=== PATIENT | female | born 1935 | race Caucasian/White ===

== ENCOUNTER → 2022-07-31 | Outpatient (CLI) | payer MEDICARE, SELFPAY ==
--- NOTE | 2022-07-31 08:55 | ART_ITS ---
Reason For Study: Atherosclerosis Procedure A bilateral lower extremity continuous wave Doppler with analog waveform analysis and ankle brachial indexes. Left Segmental Pressures Left brachial= 152mmHg. Left posterior tibial artery = 168mmHg. Left dorsalis pedis artery = 185mmHg. The left dorsalis pedis waveforms are triphasic. The left posterior tibial artery waveforms are triphasic. Right Segmental Pressures Right brachial= 164mmHg. Right posterior tibial artery = 174mmHg. Right dorsalis pedis artery = 186mmHg. The right dorsalis pedis waveforms are triphasic. The right posterior tibial artery waveforms are triphasic. Indices The right ankle brachial index by the dorsalis pedis is 1.13. The right ankle brachial index by the posterior tibial artery is 1.06. The left ankle brachial index by the dorsalis pedis is 1.13. The left ankle brachial index by the posterior tibial artery is 1.02. VL/Ankle Brachial Index Interpretation Summary Bialteral no significant occlussive disease with triphasic flow and CIERA 1.13 an d 1.13. Ordering Physician: SARAH MEHTA Referring Physician: Ramy Dumont Performed By: Lauren Gan RVT
--- NOTE | 2022-07-31 08:55 | ADU_ITS ---
Reason For Study: Atherosclerosis Right Velocities Left Velocities Ext. Iliac Artery, dist = 111.4 cm./sec. Ext Iliac Artery, dist = 103.9 cm./sec. Common Femoral Artery, mid = 201.1 cm./sec. Common Femoral Artery, mid = 117.3 cm./sec. Supf Femoral Artery, prox = 116.9 cm./sec. Supf. Femoral Artery, prox = 109.5 cm./sec. Supf Femoral Artery, mid = 73 cm./sec. Supf. Femoral Artery, mid = 73.2 cm./sec. Supf Femoral Artery, dist. = 61.7 cm./sec. Supf. Femoral Artery, dist = 55.6 cm./sec. Profunda Femoral Artery = 43.7 cm./sec. Profunda Femoral Artery = 125.1 cm./sec. Popliteal Artery, mid = 58 cm./sec. Popliteal Artery, mid = 50.7 cm./sec. Post. Tibial Artery, prox = 53.1 cm./sec. Post. Tibial Artery, prox = 65.4 cm./sec. Post. Tibial Artery, mid = 53.1 cm./sec. Post Tibial Artery, mid = 55.6 cm./sec. Post. Tibial Artery, dist = 48.8 cm./sec. Post Tibial Artery, dist. = 49.4 cm./sec. Peroneal Artery, prox = 41.8 cm./sec. Peroneal Artery, prox = 47 cm./sec. Peroneal Artery, mid = 41.8 cm./sec. Peroneal Artery, mid = 50.7 cm./sec. Peroneal Artery,dist = 47.5 cm./sec. Peroneal Artery,dist. = 33.5 cm./sec. Ant. Tibial Artery, prox = 53.1 cm./sec. Ant.Tibial Artery, prox = 55.6 cm./sec. Ant. Tibial Artery, mid = 48.4 cm./sec. Ant Tibial Artery, mid = 42.1 cm./sec. Ant. Tibial Artery, dist = 51.3 cm./sec. Ant. Tibial Artery, distal = 64.2. cm./sec. Procedure Exam performed in department. /US Art Duplex Bilat Lower Ext Interpretation Summary Bilateral lower extremity with no stenosis and triphasic flow. Ordering Physician: SARAH MEHTA Referring Physician: Ramy Johnson Performed By: Lauren Gan RVT
== END | disposition home or self-care (01) ==
PROVIDERS: PCP Internal Medicine; Referring Provider Surgery; Visit Provider Surgery
DX: I70.213 Atherosclerosis of native arteries of extremities with intermittent claudication, bilateral legs (principal)
CPT/HCPCS: 93922; 93925

== ENCOUNTER → 2023-10-16 | Outpatient (CLI) | payer MEDICARE, SELFPAY ==
--- NOTE | 2023-10-16 08:53 | ADU_ITS ---
Reason For Study: Atherosclerosis Right Velocities Left Velocities Ext. Iliac Artery, dist = 144.9 cm./sec. Ext Iliac Artery, dist = 117.3 cm./sec. Common Femoral Artery, mid = 219.5 cm./sec. Common Femoral Artery, mid = 126.7 cm./sec. Common Femoral Artery, dist = 180.7 cm./sec. Supf. Femoral Artery, prox = 85.7 cm./sec. Supf Femoral Artery, prox = 82 cm./sec. Supf. Femoral Artery, mid = 61.9 cm./sec. Supf Femoral Artery, mid = 63.7 cm./sec. Supf. Femoral Artery, dist = 49 cm./sec. Supf Femoral Artery, dist. = 41.7 cm./sec. Profunda Femoral Artery = 49.1 cm./sec. Profunda Femoral Artery = 60.3 cm./sec. Popliteal Artery, mid = 50.4 cm./sec. Popliteal Artery, mid = 53.7 cm./sec. Post. Tibial Artery, prox = 51.5 cm./sec. Post. Tibial Artery, prox = 55.9 cm./sec. Post Tibial Artery, mid = 54.8 cm./sec. Post. Tibial Artery, mid = 58.1 cm./sec. Post Tibial Artery, dist. = 28.2 cm./sec. Post. Tibial Artery, dist = 32.9 cm./sec. Peroneal Artery, prox = 39.6 cm./sec. Peroneal Artery, prox = 38.4 cm./sec. Peroneal Artery, mid = 34.9 cm./sec. Peroneal Artery, mid = 33 cm./sec. Peroneal Artery,dist. = 25.4 cm./sec. Peroneal Artery,dist = 25.4 cm./sec. Ant.Tibial Artery, prox = 50 cm./sec. Ant. Tibial Artery, prox = 46.2 cm./sec. Ant Tibial Artery, mid = 35.8 cm./sec. Ant. Tibial Artery, mid = 35.8 cm./sec. Ant. Tibial Artery, distal = 43.4 cm./sec. Ant. Tibial Artery, dist = 38.6 cm./sec. Procedure Exam performed in department. /US Art Duplex Bilat Lower Ext Interpretation Summary Bilateral legs with triphasic flow and no stenosis through out. Ordering Physician: SARAH MEHTA Referring Physician: Ramy Dumont Performed By: Lauren Gan RVT
--- NOTE | 2023-10-16 08:53 | ART_ITS ---
Reason For Study: Atherosclerosis Procedure A bilateral lower extremity continuous wave Doppler with analog waveform analysis and ankle brachial indexes. Left Segmental Pressures Left brachial= 136mmHg. Left posterior tibial artery = 166mmHg. Left dorsalis pedis artery = 184mmHg. Left digit = 98 mmHg. The left dorsalis pedis waveforms are triphasic. The left posterior tibial artery waveforms are triphasic. Right Segmental Pressures Right brachial= 160mmHg. Right posterior tibial artery = 168mmHg. Right dorsalis pedis artery = 178mmHg. Right digit = 114 mmHg. The right dorsalis pedis waveforms are triphasic. The right posterior tibial artery waveforms are triphasic. Indices The right ankle brachial index by the dorsalis pedis is 1.11. The right ankle brachial index by the posterior tibial artery is 1.05. The right digital-brachial index is 0.71. The left ankle brachial index by the dorsalis pedis is 1.15. The left ankle brachial index by the posterior tibial artery is 1.04. The left digital-brachial index is 0.61. VL/Ankle Brachial Index Interpretation Summary Normal at rest and CIERA 1.05 and 1.15. Ordering Physician: SARAH MEHTA Referring Physician: Ramy Dumont Performed By: Lauren Gan RVT
--- OUTSIDE RECORDS SUMMARY | 2023-10-16 09:13 | XMS RPT_ITS | CCD ---
Author Name Unknown Address [address] [place] [address] Organization [facility] Care Team Providers Care Business Analyst Name Role Phone RAMY LOAIZA MD Primary Care Unavailable RAMY LOAIZA MD Attending Unavailable RAMY LOAIZA MD Admitting Unavailable RAMY LOAIZA MD Referring Unavailable RAMY LOAIZA MD Consulting Unavailable PROVIDER, UNKNOWN Consulting Unavailable PROVIDER, UNKNOWN Consulting Unavailable PROVIDER, UNKNOWN Consulting Unavailable RAMY LOAIZA MD Consulting Unavailable RAMY LOAIZA MD Primary Care Unavailable RAMY LOAIZA MD Attending Unavailable RAMY LOAIZA MD Admitting Unavailable PROVIDER, UNKNOWN Consulting Unavailable PROVIDER, UNKNOWN Consulting Unavailable PROVIDER, UNKNOWN Consulting Unavailable RAMY LOAIZA MD Consulting Unavailable SEB, CHRISTOPHER Primary Care Unavailabl e RANJEET GRIGSBY Attending Unavailabl e RANJEET GRIGSBY Admitting Unavailabl e PROVIDER, UNKNOWN Consulting Unavailable PROVIDER, UNKNOWN Consulting Unavailable PROVIDER, UNKNOWN Consulting Unavailable SEB CHRISTOPHNICK Admitting Unavailabl e RANJEET GRIGSBY Attending Unavailabl e RANJEET GRIGSBY Primary Care Unavailabl e RAMY LOAIZA MD Consulting Unavailable PROVIDER, UNKNOWN Consulting Unavailable PROVIDER, UNKNOWN Consulting Unavailable PROVIDER, UNKNOWN Consulting Unavailable RAMY LOAIZA MD Consulting Unavailable RAMY LOAIZA MD Primary Care Unavailable RAMY LOAIZA MD Attending Unavailable RAMY LOAIZA MD Admitting Unavailable PROVIDER, UNKNOWN Consulting Unavailable PROVIDER, UNKNOWN Consulting Unavailable PROVIDER, UNKNOWN Consulting Unavailable RAMY LOAIZA MD Consulting Unavailable WARTMANN, CHRISTOPHER Primary Care Unavailabl e RANJEET GRIGSBY Attending Unavailabl e SEB CHRISTOPHNICK Admitting Unavailabl e PROVIDER, UNKNOWN Consulting Unavailable PROVIDER, UNKNOWN Consulting Unavailable PROVIDER, UNKNOWN Consulting Unavailable RAMY LOAIZA MD Consulting Unavailable RAMY LOAIZA MD Primary Care Unavailable RAMY LOAIZA MD Attending Unavailable RAMY LOAIZA MD Admitting Unavailable PROVIDER, UNKNOWN Consulting Unavailable PROVIDER, UNKNOWN Consulting Unavailable PROVIDER, UNKNOWN Consulting Unavailable RAMY LOAIZA MD Consulting Unavailable RAMY LOAIZA MD Primary Care Unavailable RAMY LOAIZA MD Attending Unavailable RAMY LOAIZA MD Admitting Unavailable PROVIDER, UNKNOWN Consulting Unavailable PROVIDER, UNKNOWN Consulting Unavailable PROVIDER, UNKNOWN Consulting Unavailable Allergies Allergy Classification Reported Allergen(s) Allergy Type Date of Onset Reaction(s) Facility (1 source) Azithromycin Drug Allergy [facility] Repository Problems Problem Classification Problem Date Documented Da te Episodic/Chronic Disorders of lipid metabolism (2 sources) Pure hypercholesterolemi a, unspecified; Translations: [Pure hypercholesterolemi a, unspecified] Onset: 08-21-2022 Chronic Essential hypertension (3 sources) Essential (primary) hypertension; Translations: [Essential (primary) hypertension] Onset: 05-20-2023 Chronic Osteoporosis (1 source) Age-related osteoporosis without current pathological fracture; Translations: [Age-related osteoporosis without current pathological fracture] Onset: 05-20-2023 Chronic Syncope (1 source) Syncope and collapse; Translations: [Syncope and collapse] Onset: 05-20-2023 Episodic Results Test Name Value Interpretation Reference Range Facil ity Encounters Encounter Date Encounter Type Care Provider Facility Start: 08-10-2023 End: 08-10-2023 ambulatory [facility] Start: 07-28-2023 End: 07-28-2023 ambulatory RAMY MENDOZA [facility] Start: 07-24-2023 End: 07-24-2023 ambulatory RAMY MENDOZA [facility] Start: 05-25-[address] [facility] Start: 05-20-2023 End: 05-20-2023 ambulatory RAMY MENDOZA [facility] Start: 01-08-2023 End: 01-08-2023 ambulatory RAMY MENDOZA [facility] Start: 01-07-2023 End: 01-08-2023 ambulatory RAMY MENDOZA [facility] Start: 08-21-2022 End: 08-21-2022 ambulatory RAMY Reyes [facility] Payers Date Payer Category Payer Medicare [id number] 1935 Unknown [id number] 1935 Unknown [id number] [id number] 1935 Unknown [id number] [id number] [id number] 1935 Unknown [id number] 2.16.8 [id number] 1935 Unknown [id number] 2.16.8 [id number] 1935 Unknown [id number] [id number] [id number] 1935 Unknown [id number] [id number] [id number] 1935 Unknown [id number] [id number] Clinical Note 01-13-2023 Note Date & Type Note Facility 01-13-2023 Note . MICRO - Microbiology PROCEDURE: Blood Culture (bacterial) [*1] SOURCE: Blood BODY SITE: COLLECTED DATE/TIME: 01/07/2023 20:00 EDT RECEIVED DATE/TIME: 01/08/2023 15:04 EDT START DATE/TIME: 01/08/2023 15:04 EDT FREE TEXT SOURCE: FINAL REPORTS Final Report [] Verified Date/Time/Personnel: 01/13/2023 15:59 EDT Blood Culture: No Growth at 5 days. PRELIMINARY REPORTS Preliminary Report [] Verified Date/Time/Personnel: 01/08/2023 15:59 EDT Culture has been received in lab and is no growth to date. Routine cultures are held for 5 days. Performing Locations *1: This test was performed at: [address], [address] , [facility] ([place]) Clinical Note 01-13-2023 Note Date & Type Note Facility 01-13-2023 Note . MICRO - Microbiology PROCEDURE: Blood Culture (bacterial) [*1] SOURCE: Blood BODY SITE: COLLECTED DATE/TIME: 01/07/2023 22:05 EDT RECEIVED DATE/TIME: 01/08/2023 14:58 EDT START DATE/TIME: 01/08/2023 14:59 EDT FREE TEXT SOURCE: FINAL REPORTS Final Report [] Verified Date/Time/Personnel: 01/13/2023 14:59 EDT Blood Culture: No Growth at 5 days. PRELIMINARY REPORTS Preliminary Report [] Verified Date/Time/Personnel: 01/08/2023 15:59 EDT Culture has been received in lab and is no growth to date. Routine cultures are held for 5 days. Performing Locations *1: This test was performed at: [address], [facility] , [facility] ([place]) History and physical note 01-09-2023 Note Date & Type Note Facility 01-09-2023 Note [facility] HISTORY & PHYSICAL/DISCHARGE SUMMARY NAME ACCOUNT SEX AGE ADMIT DISCHARGE PT MED. RECORD# NUMBER DATE DATE TYPE MONI DELANEY [id number] F 87 01/07/23 01/08/23 2 J [id number] ROOM: [facility] DATE OF : 37 DICTATING PHYSICIAN: Ramy Loaiza TIME SEEN: 9 a.m. CHIEF COMPLAINT: Syncopal episode. HISTORY OF PRESENT ILLNESS: The patient is a pleasant 87-year-old lady with past medical history significant for carotid artery stenosis, hypertension, and hypercholesterolemia, who was in her usual state of health yesterday. She woke up feeling well. She exercised, and she went with friends to have supper at a restaurant. While at the restaurant, her friends noticed that she was not answering, and her head was down. Then finally they figured out there is something abnormal, and they called a squad. They estimated that patient was unresponsive for anywhere from five to 20 minutes. The patient does not remember any of these events. She was brought to the emergency room, and she woke up when she got to the hospital. When she woke up, she was feeling well, except she mentioned that she was feeling a little bit tired. She was admitted for monitoring. During the night, she was noted to have sinus tachycardia with heart rate in the upper 120s that was associated with elevated blood pressure and some occipital headache, for which she received Tylenol with good results. She denies any nausea or vomiting. When I saw the patient this morning, she was feeling good. She denies any discomfort. She had a similar episode several years ago, and workup was negative. PAST MEDICAL HISTORY: (1) Hypertension. (2) Asymptomatic microscopic hematuria. (3) Carotid artery stenosis. (4) Previous history of syncope. (5) Hypercholesterolemia. (6) Mild emphysema. (7) Osteoporosis. (8) Peripheral artery disease. (9) Previous history of smoking. PAST SURGICAL HISTORY: (1) Attempted stereotactic needle core right breast biopsy in February 2013, which was aborted and was not completed. Then she had a right breast biopsy in August 2013. (2) Bilateral cataract extraction. (3) Right thumb abscess drainage. (4) Bilateral femoral endarterectomies and thrombectomy in 2018 and 2019. (5) Abdominal hysterectomy. (6) Right total knee replacement. (7) Bilateral oophorectomy. (8) Previous bilateral lower extremity peripheral revascularization. MEDICATIONS: Current medications at home: (1) Lisinopril 5 mg daily. (2) Simvastatin 10 mg daily. (3) Calcium with Vitamin D twice a day. (4) Aspirin enteric-coated 81 mg Page 1 of 4 MONI DELANEY History & Physical MONI DELANEY :1935 daily. (5) Tylenol prn. ALLERGIES: The patient is allergic to Zithromax that gives her lip swelling. FAMILY HISTORY: Father at age 84. He had Parkinson's disease. Mother at age 93. She was diabetic. A sister at age 83 after a fall. She had severe Parkinson's disease. She fell at home and could not get up. The window was open, and she froze and from complications of hypothermia. SOCIAL HISTORY: The patient is a . She has no children. She used to smoke, quit smoking remotely. She occasionally drinks alcohol. REVIEW OF SYSTEMS: The patient was feeling good before the syncopal episode and after the syncopal episode. She does not recall events during the syncopal episode. She denies any dizziness or lightheadedness, denies any chest pain or shortness of breath. She did not have any palpitations, no GI or symptoms, no lower extremity edema and no pain. The rest of the review of systems were discussed with patient and are negative. PHYSICAL EXAMINATION GENERAL APPEARANCE: The patient was lying down in bed comfortably in no acute distress, well-developed, well-nourished. VITAL SIGNS: Blood pressure 162/95, heart rate 94, respiratory rate 20, temperature 97.6, oxygen saturation 94% on room air. SKIN: Warm and dry. HEENT: Unremarkable. NECK: Supple. No nodes, no masses, no JVD, no carotid bruits, no thyroid enlargement. LUNGS: Symmetrical equal lung expansion. Clear to auscultation. Respiratory effort normal. HEART: Regular rate and rhythm. ABDOMEN: Soft, nontender. EXTREMITIES: No edema. NEUROLOGIC: The patient was alert and oriented x3. DIAGNOSTIC DATA: WBC is 5.6, hemoglobin 12.9, hematocrit 37.9, platelet count Page 2 of 4 MONI DELANEY History & Physical MONI DELANEY :1935 271,000. Sodium 134, potassium 4.5, BUN 11, creatinine 0.65, glucose 84, SGOT 23, SGPT 20, alk-phos 57, albumin 3.3, total bilirubin 0.4, magnesium 2.0. Troponins negative. Total cholesterol 215, HDL 106, LDL 99, triglycerides 48. Yesterday's laboratories in the emergency room: WBC 6.4, hemoglobin 13.6, hematocrit 40.7, platelet count 279,000. D-dimer 275, sodium 130, potassium 4.8, BUN 11, creatinine 0.65, glucose 106, albumin 3.7, total biliru (more content not included)... [facility] Summary Purpose Family History No Family History Records FoundNo Family History Records FoundNo Family History Records FoundNo Family History Records Found Advance Directives No Advanced Directives Records FoundNo Advanced Directives Records FoundNo Advanced Directives Records FoundNo Advanced Directives Records Found Additional Source Comments INFORMATION SOURCE (unrecogn ized section and content) DATE CREATED AUTHOR AUTHOR'S ORGANIZ ATION 08/23/2022 [facility] DATE CREATED AUTHOR AUTHOR'S ORGANIZ ATION 01/17/2023 [facility] ([place]) DATE CREATED AUTHOR AUTHOR'S ORGANIZ ATION 08/11/2023 [facility] FOR RECORDS PERTAINING TO PATIENTS WHO ARE OR HAVE BEEN ENROLLED IN A CHEMICAL DEPENDENCY/SUBSTANCEABUSE PROGRAM, SOME INFORMATION MAY BE OMITTED. This clinical summary was aggregated from multiple sources. Caution should be exercised in using it in the provision of clinical care. This summary normalizes information from multiple sources, and as a consequence, information in this document may materially change the coding, format and clinical context of patient data. In addition, data may be omitted in some cases. CLINICAL DECISIONS SHOULD BE BASED ON THE PRIMARY CLINICAL RECORDS. [facility]. provides no warranty or guarantee of the accuracy or completeness of information in this document.
== END | disposition home or self-care (01) ==
LOC: CVS 08:51
PROVIDERS: PCP Internal Medicine; Referring Provider Surgery; Visit Provider Surgery
DX: Z48.812 Encounter for surgical aftercare following surgery on the circulatory system (principal); I70.213 Atherosclerosis of native arteries of extremities with intermittent claudication, bilateral legs
CPT/HCPCS: 93922; 93925

== ENCOUNTER → 2025-01-10 | Outpatient (CLI) | payer MEDICARE, SELFPAY ==
--- NOTE | 2025-01-10 08:46 | ART_ITS ---
Reason For Study Reason For Study: Surgical Aftercare Procedure A bilateral lower extremity continuous wave Doppler with analog waveform analysis and ankle brachial indexes. Left Segmental Pressures Left brachial= 146mmHg. Left posterior tibial artery = 198mmHg. Left dorsalis pedis artery = >254mmHg. Left digit = 78 mmHg. The left posterior tibial artery waveforms are triphasic. The left dorsalis pedis waveforms are triphasic. Right Segmental Pressures Right brachial= 163mmHg. Right posterior tibial artery = 181mmHg. Right dorsalis pedis artery = 187mmHg. Right digit = 104 mmHg. The right posterior tibial artery waveforms are biphasic. The right dorsalis pedis waveforms are triphasic. Indices The right ankle brachial index by the posterior tibial artery is 1.11. The right ankle brachial index by the dorsalis pedis is 1.15. The right digital-brachial index is 0.64. The left ankle brachial index by the posterior tibial artery is 1.21. The left ankle brachial index by the dorsalis pedis is N/C. The left digital-brachial index is 78. VL/Ankle Brachial Index Interpretation Summary Resting ankle-brachial indices appear bilaterally normal. Ordering Physician: SARAH MEHTA Referring Physician: Ramy Dumont Performed By: Stanley Rowell RVT
--- NOTE | 2025-01-10 08:46 | ADU_ITS ---
Reason For Study Reason For Study: Surgical Aftercare Right Velocities Left Velocities Ext. Iliac Artery, dist = 120.5 cm./sec. Ext Iliac Artery, dist = 88.7 cm./sec. Common Femoral Artery, prox = 137.8 cm./sec. Common Femoral Artery, mid = 111.7 cm./sec. Common Femoral Artery, mid = 370.3 cm./sec. 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 Common Femoral Artery, dist = 160.0 cm./sec. Supf. Femoral Artery, prox = 109.5 cm./sec. 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 Supf. Femoral Artery, mid = 76.6 cm./sec. Supf Femoral Artery, prox = 106.3 cm./sec. Supf. Femoral Artery, dist = 63.4 cm./sec. Supf Femoral Artery, mid = 53.9 cm./sec. Profunda Femoral Artery = 39.3 cm./sec. Supf Femoral Artery, dist. = 49.0 cm./sec. Popliteal Artery, mid = 61.4 cm./sec. Profunda Femoral Artery = 141.9 cm./sec. Post. Tibial Artery, prox = 58.1 cm./sec. Popliteal Artery, mid = 36.7 cm./sec. Post Tibial Artery, mid = 50.4 cm./sec. Post. Tibial Artery, prox = 49.0 cm./sec. Post Tibial Artery, dist. = 59.2 cm./sec. Post. Tibial Artery, mid = 44.1 cm./sec. Peroneal Artery, prox = 38.4 cm./sec. Post. Tibial Artery, dist = 55.1 cm./sec. Peroneal Artery, mid = 31.3 cm./sec. Peroneal Artery, prox = 40.4 cm./sec. Peroneal Artery,dist. = 28.7 cm./sec. Peroneal Artery, mid = 36.7 cm./sec. Ant.Tibial Artery, prox = 52.2 cm./sec. Peroneal Artery,dist = 45.3 cm./sec. Ant Tibial Artery, mid = 45.3 cm./sec. Ant. Tibial Artery, prox = 46.5 cm./sec. Ant. Tibial Artery, distal = 51.4 cm./sec. Ant. Tibial Artery, mid = 25.7 cm./sec. Ant. Tibial Artery, dist = 45.3 cm./sec. 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 The lef t lower extremity arterial duplex is essentially normal. Ordering Physician: SARAH MEHTA Referring Physician: Ramy Campos Performed By: Stanley Rowell RVT
== END | disposition home or self-care (01) ==
LOC: CVS 08:43
PROVIDERS: PCP Internal Medicine; Referring Provider Surgery; Visit Provider Surgery
DX: Z48.812 Encounter for surgical aftercare following surgery on the circulatory system (principal); I70.213 Atherosclerosis of native arteries of extremities with intermittent claudication, bilateral legs
CPT/HCPCS: 93922; 93925